=== PATIENT | female | born 1950 | race Hispanic/Latino ===

== ENCOUNTER 2017-05-27 15:04 | Inpatient (IN) | payer MEDICAID ==
[2017-05-27] MEDS ORDERED: Sodium Chloride 0.9% 1,000 ML IV ONE (15:23)
--- NOTE | 2017-05-27 15:49 | C.PDOC ---
Time Seen by Provider: 05/27/17 15:23 Chief Complaint (Nursing): Dizziness/Lightheaded Past Medical History Vital Signs: Last Vital Signs Temp 98.2 F 05/27/17 15:07 Pulse 71 05/27/17 15:07 Resp 20 05/27/17 15:07 BP 172/107 H 05/27/17 15:07 Pulse Ox 98 05/27/17 15:49 - Medical History PMH: Asthma, HIV, Hypercholesterolemia Surgical History: Cholecystectomy - [facility] Procedures MAMMOGRAPHY NEC (03/02/13) PERCUTAN NEEDLE BIOPSY OF BREAST (03/02/13) Family History: States: Unknown Family Hx - Social History Hx Alcohol Use: No Hx Substance Use: No - Immunization History Hx Tetanus Toxoid Vaccination: No Hx Influenza Vaccination: Yes (2014) Hx Pneumococcal Vaccination: No ED Course And Treatment O2 Sat by Pulse Oximetry: 98 Disposition - Disposition Forms: [employer] ([place])
--- NOTE | 2017-05-27 15:56 | C.PDOC ---
History Of Present Illness 66 year old female, whose past medical history includes HTN and HIV, presents to the ED after being sent by Dr. Pennington for evaluation of low heart rate which was noted prior to arrival. Patient was seen at Dr. Pennington's office earlier today, when he noted she was bradycardic and reported feeling slightly weak and lightheaded. Patient was found to have regular heart rate in triage. Patient denies headache, chest pain, shortness of breath. Time Seen by Provider: 05/27/17 15:23 Chief Complaint (Nursing): Dizziness/Lightheaded History Per: Patient History/Exam Limitations: no limitations Onset/Duration Of Symptoms: Hrs Current Symptoms Are (Timing): Better Seizure Or Post-ictal Symptoms: None Additional History Per: Patient Past Medical History Reviewed: Historical Data, Nursing Documentation, Vital Signs Vital Signs: Last Vital Signs Temp 98.2 F 05/27/17 15:07 Pulse 71 05/27/17 15:07 Resp 20 05/27/17 15:07 BP 172/107 H 05/27/17 15:07 Pulse Ox 98 05/27/17 18:00 - Medical History PMH: Asthma, HIV, HTN, Hypercholesterolemia Surgical History: Cholecystectomy - [facility] Procedures MAMMOGRAPHY NEC (03/02/13) PERCUTAN NEEDLE BIOPSY OF BREAST (03/02/13) Family History: States: Unknown Family Hx - Social History Hx Alcohol Use: No Hx Substance Use: No - Immunization History Hx Tetanus Toxoid Vaccination: No Hx Influenza Vaccination: Yes (2014) Hx Pneumococcal Vaccination: No Review Of Systems Constitutional: Positive for: Weakness Cardiovascular: Positive for: Other (low heart rate ) Neurological: Positive for: Other (lightheadedness ) Physical Exam - Physical Exam Appears: Non-toxic, No Acute Distress Skin: Normal Color, Warm, Dry Head: Atraumatic, Normacephalic Eye(s): bilateral: Normal Inspection Oral Mucosa: Moist Neck: Supple Chest: Symmetrical, No Deformity, No Tenderness Cardiovascular: Rhythm Regular, No Murmur Respiratory: Normal Breath Sounds, No Rales, No Rhonchi, No Wheezing Extremity: Normal ROM, Capillary Refill (less than 2 seconds ) Neurological/Psych: Oriented x3, Normal Speech, Normal Cognition Gait: Steady ED Course And Treatment - Laboratory Results Result Diagrams: 05/27/17 15:48 10/04/17 15:48 Lab Interpretation: No Acute Changes ECG: Interpreted By Me ECG Rhythm: Sinus Rhythm, R BBB ECG Interpretation: No Acute Changes Rate From EC O2 Sat by Pulse Oximetry: 98 (on RA) Pulse Ox Interpretation: Normal - Radiology CXR: Interpreted by Me CXR Interpretation: Yes: No Acute Disease Progress Note: EKG, CXR, and labs ordered and reviewed. Patient received IV Fluids. Reassessment Condition: Improved - Physician Consult Information Physician Contacted: Layton ePnnington Outcome Of Conversation: admit Disposition Discussed With Dr.: Layton Pennington Doctor Will See Patient In The: Hospital - Disposition Disposition: HOSPITALIZED Disposition Time: 17:00 Condition: STABLE - POA Present On Arrival: None - Clinical Impression Clinical Impression: Dizziness, Near syncope, Bradycardia, Bundle branch block, right - PA / ANGLESMITH HELPER / Resident Statement MD/DO has reviewed & agrees with the documentation as recorded. - Scribe Statement The provider has reviewed the documentation as recorded by the Scribe (Ebonie Oliver) All medical record entries made by the Scribe were at my direction and personally dictated by me. I have reviewed the chart and agree that the record accurately reflects my personal performance of the history, physical exam, medical decision making, and the department course for this patient. I have also personally directed, reviewed, and agree with the discharge instructions and disposition. Decision To Admit - Pt Status Changed To: Hospital Disposition Of: Inpatient - Admit Certification Admit to Inpatient:: After my assessment, the patient will require hospitalization for at least two midnights. This is because of the severity of symptoms shown, intensity of services needed, and/or the medical risk in this patient being treated as an outpatient. - InPatient: Physician Admission Certification: I certify that this patient requires 2 or more midnights of care for the following reason:: New BBB. Bradycardia - . Bed Request Type: Telemetry Admitting Physician: Layton Pennington Patient Diagnosis: Dizziness, Near syncope, Bradycardia, Bundle branch block, right
[2017-05-27 16:02] LABS: BASO # 0.1 K/uL (0.0-0.2); BASO % 0.8 % (0.0-2.0); CHLORIDE 103 mmol/L (98-107); EOS # 0.3 K/uL (0.0-0.7); EOS % 5.2 % (0.0-4.0); HEMATOCRIT 42.2 % (34.0-47.0); LYMPH # 2.1 K/uL (1.0-4.3); LYMPH % 32.6 % (20.0-40.0); MEAN CELL VOLUME 100.7 fL (81.0-99.0); MEAN CORPUSCULAR HEMOGLOBIN 34.8 pg (27.0-31.0); MEAN CORPUSCULAR HGB CONC 34.5 g/dL (33.0-37.0); MEAN PLATELET VOLUME 8.7 fL (7.2-11.7); MONO # 0.4 K/uL (0.0-0.8); MONO % 6.7 % (0.0-10.0); NRBC % 0.1 % (0.0-2.0); RBC URINE < 1 /hpf (0-3); RED CELL DISTRIBUTION WIDTH 13.1 % (11.5-14.5); URINE BACTERIA RARE (<OCC); URINE BILIRUBIN NEGATIVE (NEGATIVE); URINE BLOOD NEGATIVE (NEGATIVE); URINE COLOR Straw (YELLOW); URINE GLUCOSE (UA) NORMAL (Normal); URINE KETONE NEGATIVE (NEGATIVE); URINE LEUKOCYTE ESTERASE 1+ Leu/uL (Negative); URINE PROTEIN NEGATIVE (NEGATIVE); URINE UROBILINOGEN NORMAL mg/dL (0.2-1.0); WBC URINE 12 /hpf (0-5); WHITE BLOOD COUNT 6.3 K/uL (4.8-10.8)
[2017-05-27 16:03] LABS: POTASSIUM 3.3 mmol/L (3.6-5.2); SODIUM 137 mmol/L (132-148)
[2017-05-27 16:05] LABS: ALB/GLOB RATIO 1.1 (1.0-2.1); AST/SGOT 28 U/L (14-36); BILIRUBIN,TOTAL 1.2 mg/dL (0.2-1.3); CARBON DIOXIDE 20 mmol/L (22-30); GFR AFRICAN-AMERICAN > 60; TOTAL PROTEIN 8.1 g/dL (6.3-8.3)
[2017-05-27 16:06] LABS: ALKALINE PHOSPHATASE 70 U/L (38-126); ALT/SGPT 29 U/L (9-52); BLOOD UREA NITROGEN 13 mg/dL (7-17); CALCIUM 9.4 mg/dl (8.6-10.4); GLUCOSE,RANDOM 121 mg/dL (65-105)
--- NOTE | 2017-05-27 16:13 | RAD ---
HISTORY: SOB COMPARISON: Chest radiographs 01/13/2016. TECHNIQUE: Chest PA and lateral FINDINGS: LUNGS: No active pulmonary disease. PLEURA: No significant pleural effusion identified. No pneumothorax apparent. CARDIOVASCULAR: Normal. OSSEOUS STRUCTURES: No significant abnormalities. VISUALIZED UPPER ABDOMEN: Normal. OTHER FINDINGS: Surgical clips are again seen at the right axilla region and inferior right chest. IMPRESSION: No interval acute cardiopulmonary disease appreciated.
[2017-05-27] MEDS ORDERED: Sodium Chloride 0.9% 1,000 ML ONE (17:02)
[2017-05-27] MEDS ORDERED: Albuterol HFA 90 mcg/actuation (8 g) IH PRN ×2 (19:02→20:45)
[2017-05-27] MEDS ORDERED: Home Med 1 UNIT (Atorvastatin [Lipitor] 10 MG) PO SCH (19:15)
[2017-05-27] MEDS ORDERED: Ergocalciferol 50,000 Intl Units Cap PO SCH (19:15)
[2017-05-28] MEDS ORDERED: Potassium Chloride 20 mEq ER Tab PO ONE (02:24)
--- NOTE | 2017-05-28 03:25 | CON ---
DATE: REASON FOR CONSULTATION: Abnormal EKG. HISTORY OF PRESENT ILLNESS: The patient is a 66-year-old [place] female who has a history of hypertension, HIV positive, and history of breast cancer in 2012 for which she underwent right breast lumpectomy, possible chemotherapy and radiation. The patient was referred by Dr. Pennington from his office because of bradycardia and lightheadedness. The patient denies any dizziness at this time. The patient's EKG revealed new onset right bundle branch block as well as sinus bradycardia. The patient's earlier EKG in 07/2015 revealed only left sinus bradycardia with left anterior fascicular block. The patient denies any syncope. The patient reported that at one point she had palpitations, but does not recall the workup that was done or any medications were given for that. SOCIAL HISTORY: Nonsmoker. MEDICATIONS: The patient is on antiviral therapy. She is also receiving intravenous potassium chloride replacement and is on folic acid 1 mg daily. REVIEW OF SYSTEMS: No nausea or vomiting. No fever or chills. PHYSICAL EXAMINATION GENERAL: The patient is a middle aged female who does not appear to be in any distress. VITAL SIGNS: Blood pressure 150/87, heart rate 55, temperature 97.8, respirations 18. HEENT: Normocephalic. CHEST: Clear. HEART: S1 and S2, regular. ABDOMEN: Soft. EXTREMITIES: No edema. LABORATORY DATA: SMA-7; sodium 137, potassium 3.3, chloride 103, CO2 of 20, glucose 121, BUN 15, and creatinine 1.1. One set of troponin is negative. Hemoglobin, hematocrit, white count and platelet count are within normal limits. EKG revealed sinus bradycardia, bifascicular block, right bundle branch block with left anterior fascicular block. Echocardiography earlier performed in 07/2015, reviewed ejection fraction at the range of 50 to 55%, mild to moderate mitral insufficiency. ASSESSMENT: 1. New onset right bundle branch block. 2. Sinus bradycardia and dizziness. 3. Human immunodeficiency virus positive. RECOMMENDATIONS: Continue current antiviral therapy as well as potassium replacement and folic acid. Obtain TSH level. Schedule patient for an echocardiogram. Ricci Amaro MD [facility] # [id number]
[2017-05-28 06:29] LABS: HEMATOCRIT 40.8 % (34.0-47.0); MEAN CELL VOLUME 102.1 fL (81.0-99.0); MEAN CORPUSCULAR HEMOGLOBIN 35.4 pg (27.0-31.0); MEAN CORPUSCULAR HGB CONC 34.7 g/dL (33.0-37.0); MEAN PLATELET VOLUME 8.5 fL (7.2-11.7); RED CELL DISTRIBUTION WIDTH 13.1 % (11.5-14.5); WHITE BLOOD COUNT 6.1 K/uL (4.8-10.8)
[2017-05-28 07:52] LABS: CHLORIDE 106 mmol/L (98-107); POTASSIUM 3.7 mmol/L (3.6-5.2); SODIUM 141 mmol/L (132-148)
[2017-05-28 07:54] LABS: AST/SGOT 27 U/L (14-36); BILIRUBIN,TOTAL 1.4 mg/dL (0.2-1.3); CARBON DIOXIDE 23 mmol/L (22-30); CHOLESTEROL 197 mg/dL (0-199); GFR AFRICAN-AMERICAN > 60; TOTAL PROTEIN 7.7 g/dL (6.3-8.3)
[2017-05-28 07:55] LABS: ALKALINE PHOSPHATASE 66 U/L (38-126); ALT/SGPT 29 U/L (9-52); BLOOD UREA NITROGEN 13 mg/dL (7-17); CALCIUM 9.3 mg/dl (8.6-10.4); GLUCOSE,RANDOM 84 mg/dL (65-105)
[2017-05-28 08:21] LABS: THYROID STIMULATING HORMONE 1.27 mIU/L (0.46-4.68)
[2017-05-28] MEDS ORDERED: Abacavir/Lamivudine 600 mg-300 mg Tab PO SCH (10:00)
[2017-05-28] MEDS: Abacavir/Lamivudine 600 mg-300 mg Tab PO SCH (10:08)
--- NOTE | 2017-05-28 14:37 | PN ---
DATE: SUBJECTIVE: The patient denies any dizziness. PHYSICAL EXAMINATION: VITAL SIGNS: Blood pressure 143/79, heart rate initially today was 47 and at this time is 76 beats per minute, temperature 98.4 and respirations 18. HEENT: Normocephalic. HEART: S1 and S2 regular. CHEST: Clear. EXTREMITIES: No edema. LABORATORY DATA: TSH level is within normal limits. Today's SMA-7 is within normal limits. Hemoglobin, hematocrit, white count and platelet count are within normal limits. ASSESSMENT: 1. Sinus bradycardia and new-onset right bundle-branch block. 2. History of dizziness. 3. Human immunodeficiency virus positive. 4. History of breast carcinoma, status post right breast lumpectomy followed by chemotherapy and radiation therapy in year 2014. RECOMMENDATIONS: Continue current subcutaneous heparin 5000 units twice a day. Continue antiviral therapy. I will review the echocardiogram study performed today. Ricci Amaro MD
--- NOTE | 2017-05-28 15:31 | CARD ---
APPROVED REPORT EXAM: Two-dimensional and M-mode echocardiogram with Doppler and color Doppler. Other Information Quality : GoodRhythm : NSR INDICATION Syncope Palpitations NEW BBB, HIV, CA OF BREAST CANCER RISK FACTORS Hypertension Hyperlipidemia 2D DIMENSIONS IVSd0.9 (0.7-1.1cm)LVDd3.8 (3.9-5.9cm) PWd0.9 (0.7-1.1cm)LVDs2.4 (2.5-4.0cm) FS (%) 36.4 %LVEF (%)66.9 (>50%) M-Mode DIMENSIONS RVDd1.97 (2.1-3.2cm)Left Atrium (MM)3.27 (2.5-4.0cm) IVSd0.94 (0.7-1.1cm)Aortic Root2.76 (2.2-3.7cm) LVDd4.56 (4.0-5.6cm)Aortic Cusp Exc.1.77 (1.5-2.0cm) PWd0.94 (0.7-1.1cm)FS (%) 49 % LVDs2.34 (2.0-3.8cm)LVEF (%)80 (>50%) Mitral Valve MV E Dxikasgn57.2cm/sMV A Qyluhxgp45.3cm/sE/A ratio0.9 TDI E/Lateral E'0.0E/Medial E'0.0 Tricuspid Valve TR Peak Iiujlimq400ys/sTR Peak Gr.[id number] LEFT VENTRICLE The left ventricle is normal size. There is normal left ventricular wall thickness. The left ventricular function is normal. The left ventricular ejection fraction is within the normal range. There is normal LV segmental wall motion. Transmitral Doppler flow pattern is abnormal. RIGHT VENTRICLE The right ventricle is normal size. ATRIA The left atrium size is normal. The right atrium size is normal. AORTIC VALVE The aortic valve is normal in structure. MITRAL VALVE Mitral regurgitation is trace. TRICUSPID VALVE There is mild tricuspid regurgitation. <Conclusion> Normal LV systolic function. Diastolic dysfunction. Normal chamber size. Trace MR. Mild TR.
--- NOTE | 2017-05-28 15:33 | CARD ---
APPROVED REPORT EKG Measurement Heart [id number] [id number] <Conclusion> Normal sinus rhythm Right bundle branch block Left anterior fascicular block Bifascicular block Abnormal ECG
[2017-05-29 07:18] LABS: CHLORIDE 105 mmol/L (98-107)
[2017-05-29 07:19] LABS: SODIUM 138 mmol/L (132-148)
[2017-05-29 07:21] LABS: AST/SGOT 27 U/L (14-36); BILIRUBIN,TOTAL 1.4 mg/dL (0.2-1.3); CARBON DIOXIDE 22 mmol/L (22-30); GFR AFRICAN-AMERICAN > 60
[2017-05-29 07:22] LABS: ALKALINE PHOSPHATASE 62 U/L (38-126); ALT/SGPT 26 U/L (9-52); BLOOD UREA NITROGEN 18 mg/dL (7-17); CALCIUM 9.4 mg/dl (8.6-10.4); GLUCOSE,RANDOM 84 mg/dL (65-105)
[2017-05-29 07:42] LABS: THYROID STIMULATING HORMONE 1.04 mIU/L (0.46-4.68)
[2017-05-29 07:58] VITALS: BP 136/77; PULSE 52; RESP 18; TEMP 98.3; O2SAT 96
--- NOTE | 2017-05-29 09:20 | HP ---
HISTORY OF PRESENT ILLNESS: This patient is a 66-year-old female with history of HIV and hypertension. The patient came to my office complaining of dizziness and generalized weakness for the past 4 or 5 days. The patient was found to have a heart rate in the range of 40 to 46 and the patient also was found to have orthostatic hypotension and blood pressure was 110/60, and dropped at 89/55 in sitting position, so the patient was advised to go to the emergency room for admission. Also on admission, the patient was complaining of feeling that she was going to pass out for the past few days on and off. ALLERGIES: THE PATIENT DENIES ANY ALLERGIES. PAST MEDICAL HISTORY: History of HIV positive, hypertension, asthma, and hyperlipidemia. SURGICAL HISTORY: The patient has history of cholecystectomy. SOCIAL HISTORY: The patient has children. No history of smoking or alcohol abuse. FAMILY HISTORY: No inherited disease. REVIEW OF SYSTEMS: RESPIRATORY SYSTEM: The patient denies any shortness of breath. CARDIOVASCULAR: The patient has been having some palpitations at times and denies any chest pain. GASTROINTESTINAL: No nausea or vomiting, but has been having some anorexia. GENITOURINARY: Denies any dysuria. NEUROLOGIC: The patient is weak and also has dizziness on and off. PHYSICAL EXAMINATION: GENERAL: The patient is alert and awake, and oriented x3, and pleasant. VITAL SIGNS: Blood pressure was 143/76, but the blood pressure was 110/70 on admission and pulse was 45-48, respirations 18. HEENT: Head is normocephalic. The mouth was moist and there is no thrush. NECK: Supple. No JVD. LUNGS: Some fine wheezes. HEART: Regular rate and rhythm, but there is bradycardia. ABDOMEN: Soft, nontender. No palpable mass. EXTREMITIES: There is no edema. LABORATORY DATA: The patient has tests done on admission. WBC 6.3, hemoglobin 14.6, hematocrit 42.2, MCV 147, MCH 34.8 and platelets 299,000. Chemistry; sodium 137, potassium 3.3, chloride 103, bicarbonate 20, BUN 13, creatinine 1.1, and glucose 121, calcium 9.4, AST 28, ALT 29, alkaline phosphatase 70, troponin is 0.012. The patient has also other test today; triglyceride is 210, cholesterol was 197, LDL 83, and HDL 51. The patient admitted with diagnosis of bradyarrhythmia, hypertension, dizziness, near syncope, and also HIV positive. The patient had cardiology consult with Dr. Amaro. Also, the patient has diabetes and hypokalemia, The patient will have a potassium replacement and echocardiogram and 24-hour Holter monitor is ordered. We are going to continue to see this patient in the hospital. Layton Pennington MD
[2017-05-29] MEDS: Abacavir/Lamivudine 600 mg-300 mg Tab PO SCH (09:49)
--- NOTE | 2017-05-29 14:49 | PN ---
SUBJECTIVE: The patient denies any dizziness. There is no documented significant bradycardia, the heart rates documented today are 49 and 52 beats per minute. PHYSICAL EXAMINATION: VITAL SIGNS: Blood pressure 136/77, heart rate 52, temperature 98.3, respirations 18. HEENT: [place] conjunctivae. CHEST: Clear. HEART: S1 and S2 regular. EXTREMITIES: No edema. LABORATORIES: Today's SMA-7 is within normal limit except for BUN of 18. Total bilirubin is borderline elevated at 1.4. Official echo report revealed normal left ventricular systolic function, diastolic dysfunction, trace MR and mild tricuspid insufficiency. ASSESSMENT: 1. Sinus bradycardia which so far is asymptomatic. 2. Human immunodeficiency virus positive. 3. Anemia. RECOMMENDATIONS: Continue current antiviral therapy. Continue Norvasc 2.5 mg once a day. The patient can be discharged and undergo ambulatory 24 hours Holter monitor as an outpatient. Ricci Amaro MD
--- NOTE | 2017-05-29 20:43 | PN ---
Today, the patient is alert and awake, denies any shortness of breath. No chest pain. The patient is having no dizziness today. PHYSICAL EXAMINATION VITAL SIGNS: Blood pressure of 136/77, pulse is 80, respiration is . HEENT: Mouth is moist. No thrush. NECK: Supple. No JVD. LUNGS: Clear. HEART: Regular rate and rhythm, bradycardic. ABDOMEN: Soft and nontender. No palpable mass. EXTREMITIES: There is no edema. LABORATORY DATA: The patient had the blood test done. It showed a WBC of 6.1, hemoglobin 14.2, hematocrit 40.8, and platelets 288. Chemistry: Sodium of 138, potassium 4, chloride 105, bicarb is 22, BUN 18, creatinine is 1.1. AST is 27, ALT 26, and total bilirubin 1.4. Also, the patient had an echocardiogram done. The echocardiogram that was done today showed that the left ventricle is normal size and there is a normal left LV systolic function. There is diastolic dysfunction and trace mitral valve regurgitation and mild tricuspid regurgitation. PLAN: So the plan is that the patient will have 24-hour Holter monitor, and we will consider discharging the patient today. By the way, the ejection fraction was 80%. The case was reviewed and discussed with the Luz Maria Bartlett, the nurse practitioner. Layton Pennington MD
--- NOTE | 2017-05-30 03:20 | DS ---
SUMMARY: The patient is a 66-year-old female with history of HIV and hypertension. The patient came to my office. She was complaining of dizziness and shortness of breath on exertion. The patient was found to be bradycardic at a rate of 40 to 45 beats per minute and also the patient was found to have orthostatic hypotension. So, the patient was advised to go to the [facility] for evaluation, which the patient . The patient has, as I mentioned, past medical history of HIV, hypertension, and arthritis. The patient had consult with Dr. Amaro, gas roller operator and also the patient had some blood work done that has revealed hypokalemia. Also, the patient had an echocardiogram that has revealed an ejection fraction of 80%, but also diastolic dysfunction and normal LV systolic function, trace mitral regurgitation, and mild tricuspid regurgitation. So, a 24-hour Holter monitor was ordered, but the patient will consider this 24-hour Holter as an outpatient. The patient will have the Holter monitor upon discharge and will bring the machine tomorrow, and we are going to follow this patient within one week. In the meantime, the patient will have 2 mg of amlodipine once a day. Layton Pennington MD
[2017-05-31] MEDS ORDERED: Pneumococcal 23-Valent Vaccine IM ONE (10:00)
== END 2017-05-29 16:00 | disposition home or self-care (01) | DRG 138 ==
LOC: C.ER 15:04 → C.9E 16:40 → C.6T 17:42
PROVIDERS: ADMIT Specialist; ATTEND Specialist
DX: I49.8 Other specified cardiac arrhythmias (principal); E87.6 Hypokalemia; I10 Essential (primary) hypertension; I07.1 Rheumatic tricuspid insufficiency; R55 Syncope and collapse; E11.9 Type 2 diabetes mellitus without complications; D64.9 Anemia, unspecified; R00.1 Bradycardia, unspecified; I45.10 Unspecified right bundle-branch block; J45.909 Unspecified asthma, uncomplicated; Z21 Asymptomatic human immunodeficiency virus [HIV] infection status; E78.00 Pure hypercholesterolemia, unspecified; Z85.3 Personal history of malignant neoplasm of breast; I95.1 Orthostatic hypotension; I34.0 Nonrheumatic mitral (valve) insufficiency

== ENCOUNTER 2018-09-17 03:05 | Inpatient (IN) | payer MEDICAID, MEDICARE ==
--- NOTE | 2018-09-17 03:34 | C.PDOC ---
History Of Present Illness patient woke up with fever, chills and just not feeling well. No cough or urinary symptoms. has not received the flu shot this year. Speaking in complete sentences. Time Seen by Provider: 09/17/18 03:33 Chief Complaint (Nursing): Flu-like Symptoms History Per: Patient History/Exam Limitations: no limitations Onset/Duration Of Symptoms: Hrs Current Symptoms Are (Timing): Still Present Severity: Moderate Pain Scale Rating Of: 4 Reports Recently: Treated By A Physician Recent travel outside of the [place]: No Additional History Per: Family Past Medical History Reviewed: Historical Data, Nursing Documentation, Vital Signs Vital Signs: Last Vital Signs Temp 99.5 F 09/17/18 03:16 Pulse 152 H 09/17/18 03:16 Resp 18 09/17/18 03:16 BP 139/89 09/17/18 03:16 Pulse Ox 96 09/17/18 03:16 - Medical History PMH: Asthma, HIV, HTN, Hypercholesterolemia Denies: Chronic Kidney Disease Surgical History: Cholecystectomy - [facility] Procedures MAMMOGRAPHY NEC (03/02/13) PERCUTAN NEEDLE BIOPSY OF BREAST (03/02/13) Family History: States: No Known Family Hx - Social History Hx Alcohol Use: No Hx Substance Use: No - Immunization History Hx Tetanus Toxoid Vaccination: No Hx Influenza Vaccination: Yes (2014) Hx Pneumococcal Vaccination: No Review Of Systems Constitutional: Positive for: Fever, Chills ENT: Negative for: Throat Pain Cardiovascular: Negative for: Chest Pain Respiratory: Negative for: Shortness of Breath Gastrointestinal: Negative for: Nausea, Vomiting, Abdominal Pain Genitourinary: Negative for: Dysuria Musculoskeletal: Positive for: Back Pain Skin: Negative for: Rash Neurological: Negative for: Weakness Psych: Negative for: Anxiety Physical Exam - Physical Exam Appears: Non-toxic, No Acute Distress Skin: Warm, Dry Head: Normacephalic Eye(s): bilateral: Normal Inspection Oral Mucosa: Moist Throat: No Erythema Neck: Supple Chest: Symmetrical Cardiovascular: Rhythm Regular Respiratory: No Rales, Rhonchi, No Wheezing Gastrointestinal/Abdominal: Soft, No Tenderness, No Distention, No Guarding, No Rebound Back: No CVA Tenderness Extremity: Normal ROM Extremity: Bilateral: Atraumatic Neurological/Psych: Oriented x3 Gait: Steady ED Course And Treatment - Laboratory Results Result Diagrams: 09/17/18 03:44 09/17/18 03:44 O2 Sat by Pulse Oximetry: 96 Pulse Ox Interpretation: Normal - Radiology CXR: Interpreted by Me, Viewed By Me CXR Interpretation: No: Infiltrates, Fracture, Pnemothorax Reevaluation Time: 06:12 Reassessment Condition: Improved Disposition Discussed With DrIndra: Layton Pennington Comment: accepted the pt on his service and took over the care at 6:18AM Doctor Will See Patient In The: Hospital Counseled Patient/Family Regarding: Studies Performed, Diagnosis, Need For Followup, Rx Given - Disposition Disposition: HOSPITALIZED Disposition Time: 03:34 Condition: FAIR Forms: [employer] ([place]) - POA Present On Arrival: Poor Glycemic Control - Clinical Impression Clinical Impression: Influenza-like illness, Fever, Pyelonephritis Decision To Admit - Pt Status Changed To: Hospital Disposition Of: Inpatient - Admit Certification Admit to Inpatient:: After my assessment, the patient will require hospitalization for at least two midnights. This is because of the severity of symptoms shown, intensity of services needed, and/or the medical risk in this patient being treated as an outpatient. - InPatient: Physician Admission Certification: I certify that this patient requires 2 or more midnights of care for the following reason:: After my assessment, the patient will require hospitalization for at least two midnights. This is because of the severity of symptoms shown, intensity of services needed, and/or the medical risk in this patient being treated as an outpatient. - . Bed Request Type: Regular Admitting Physician: Layton Pennington Patient Diagnosis: Influenza-like illness, Fever, Pyelonephritis
[2018-09-17] MEDS ORDERED: Sodium Chloride 0.9% 1,000 ML IV ONE (03:39)
[2018-09-17 03:47] LABS: BASO # 0.1 K/uL (0.0-0.2); BASO % 0.3 % (0.0-2.0); EOS # 0.1 K/uL (0.0-0.7); EOS % 0.8 % (0.0-4.0); HEMOGLOBIN 14.4 g/dL (11.0-16.0); LYMPH # 0.8 K/uL (1.0-4.3); LYMPH % 4.8 % (20.0-40.0); MEAN CELL VOLUME 99.4 fL (81.0-99.0); MEAN CORPUSCULAR HEMOGLOBIN 33.7 pg (27.0-31.0); MEAN CORPUSCULAR HGB CONC 33.9 g/dL (33.0-37.0); MEAN PLATELET VOLUME 7.3 fL (7.2-11.7); MONO # 0.5 K/uL (0.0-0.8); MONO % 2.8 % (0.0-10.0); NEUT # 14.9 K/uL (1.8-7.0); NEUT % 91.3 % (50.0-75.0); NRBC % 0.1 % (0.0-2.0); PLATELET COUNT 455 K/uL (130-400); RBC 4.27 Mil/uL (3.80-5.20); RED CELL DISTRIBUTION WIDTH 12.9 % (11.5-14.5); WHITE BLOOD COUNT 16.4 K/uL (4.8-10.8)
[2018-09-17 03:50] LABS: VENOUS BLOOD GAS BASE EXCESS -1.1 mmol/L (0.0-2.0); VENOUS BLOOD GAS PCO2 34 mmHg (40-60); VENOUS BLOOD GAS PO2 56 mm/Hg (30-55); VENOUS BLOOD PH 7.43 (7.32-7.43)
[2018-09-17] MEDS ORDERED: Sodium Chloride 0.9% 2,000 ML IV ONE (03:55)
[2018-09-17 04:09] LABS: ALT/SGPT 9 U/L (9-52); AST/SGOT 30 U/L (14-36); BLOOD UREA NITROGEN 15 mg/dL (7-17); CALCIUM 8.9 mg/dl (8.6-10.4); GFR NON-AFRICAN AMERICAN 55
[2018-09-17] MEDS ORDERED: Potassium Chloride 10 mEq ER Tab PO STA (04:23)
[2018-09-17 04:43] LABS: EOSINOPHIL 2 % (0-4); LYMPHOCYTE 4 % (20-40); MONOCYTE 3 % (0-10); NEUTROPHIL 91 % (50-75); PLATELET ESTIMATE NORMAL (NORMAL); TOTAL CELLS COUNTED 100
[2018-09-17] MEDS ORDERED: Sodium Chloride 0.9% 1,000 ML ONE (04:43)
[2018-09-17] MEDS ORDERED: Potassium Chloride 10 mEq ER Tab PO ONE (04:43)
[2018-09-17 04:49] LABS: URINE BACTERIA MANY (<OCC); URINE BILIRUBIN NEGATIVE (NEGATIVE); URINE BLOOD NEGATIVE (NEGATIVE); URINE CLARITY Clear (Clear); URINE COLOR Colorless (YELLOW); URINE GLUCOSE (UA) NORMAL (Normal); URINE LEUKOCYTE ESTERASE 2+ Leu/uL (Negative); URINE PROTEIN NEGATIVE (NEGATIVE); URINE UROBILINOGEN NORMAL mg/dL (0.2-1.0)
[2018-09-17] MEDS ORDERED: cefTRIAXone IV 1 gm in Dextros 50 ML IVPB ONE (05:15)
[2018-09-17] MEDS ORDERED: Albuterol HFA 90 mcg/actuation (8 g) IH PRN ×2 (06:24→13:45)
[2018-09-17] MEDS ORDERED: Home Med 1 UNIT (Atorvastatin [Lipitor] 10 MG) PO SCH (06:30)
[2018-09-17] MEDS ORDERED: Ergocalciferol 50,000 Intl Units Cap PO SCH (06:30)
--- NOTE | 2018-09-17 07:39 | RAD ---
Date of service: 09/17/2018 HISTORY: fever COMPARISON: Chest radiographs 05/27/2017. FINDINGS: LUNGS: Diminished inspiratory volume. No definitive infiltrate bilaterally. Surgical clips at right axilla/right breast reiterated. PLEURA: No significant pleural effusion identified, no pneumothorax apparent. CARDIOVASCULAR: Calcific atherosclerotic changes are seen related to the thoracic aorta. Normal cardiac size. No pulmonary vascular congestion. OSSEOUS STRUCTURES: No significant abnormalities. VISUALIZED UPPER ABDOMEN: Normal. OTHER FINDINGS: None. IMPRESSION: Limited inspiratory volume. No infiltrate or pleural effusion bilaterally. Surgical clips reiterated at right axilla/right breast
[2018-09-17] MEDS ORDERED: Abacavir/Lamivudine 600 mg-300 mg Tab PO ONE (10:00)
[2018-09-17] MEDS ORDERED: Abacavir/Lamivudine 600 mg-300 mg Tab PO SCH (10:00)
[2018-09-17] MEDS ORDERED: Ciprofloxacin 400mg/200ml D5W 400 MG/200 ML BAG IVPB ONE (11:15)
[2018-09-17] MEDS: Ciprofloxacin 400mg/200ml D5W 400 MG/200 ML BAG IVPB SCH ×2 (11:19→19:08)
--- NOTE | 2018-09-17 19:47 | CP.PCM.CON ---
History of Present Illness - History of Present Illness History of Present Illness: 68 yo female admitted with fever chills and weakness found to have pyelonephritids ID consulted for this PMH HTN HIV Breast CA SH non smoker Meds Triumeq FH N/C NKA Review of Systems - Review of Systems All systems: reviewed and no additional remarkable complaints except - Constitutional Constitutional: As Per HPI - EENT Eyes: absent: As Per HPI, Blind Spots, Blurred Vision, Change in Vision, Decreased Night Vision, Diplopia, Discharge, Dry Eye, Exophthalmos, Floaters, Irritation, Itchy Eyes, Loss of Peripheral Vision, Pain, Photophobia, Requires Corrective Lenses, Sees Flashes, Spots in Vision, Tunnel Vision, Other Visual Disturbances, Loss of Vision, Other Ears: absent: As Per HPI, Decreased Hearing, Ear Discharge, Ear Pain, Tinnitus, Abnormal Hearing, Disequilibrium, Dizziness, Other Nose/Mouth/Throat: absent: As Per HPI, Epistaxis, Nasal Congestion, Nasal Discharge, Nasal Obstruction, Nasal Trauma, Nose Pain, Post Nasal Drip, Sinus Pain, Sinus Pressure, Bleeding Gums, Change in Voice, Dental Pain, Dry Mouth, Dysphagia, Halitosis, Hoarsness, Lip Swelling, Mouth Lesions, Mouth Pain, Odynophagia, Sore Throat, Throat Swelling, Tongue Swelling, Facial Pain, Neck Pain, Neck Mass, Other - Breasts Breasts: absent: As Per HPI, Change in Shape, Mass, Pain, Nipple Discharge, Nipple Inversion, Skin Changes, Swelling, Other - Cardiovascular Cardiovascular: absent: As Per HPI, Acrocyanosis, Chest Pain, Chest Pain at Rest, Chest Pain with Activity, Claudication, Diaphoresis, Dyspnea, Dyspnea on Exertion, Edema, Irregular Heart Rhythm, Pain Radiating to Arm/Neck/Jaw, Leg Edema, Leg Ulcers, Lightheadedness, Orthopnea, Palpitations, Paroxysmal Nocturnal Dyspnea, Pedal Edema, Radiating Pain, Rapid Heart Rate, Slow Heart Rate, Syncope, Other - Respiratory Respiratory: absent: As Per HPI, Cough, Dyspnea, Hemoptysis, Dyspnea on Exertion, Wheezing, Snoring, Stridor, Pain on Inspiration, Chest Congestion, Excessive Mucous Production, Change in Mucous Color, Pain with Coughing, Other - Gastrointestinal Gastrointestinal: absent: As Per HPI, Abdominal Pain, Belching, Bloating, Change in Bowel Habits, Change in Stool Character, Coffee Ground Emesis, Constipation, Cramping, Diarrhea, Dyspepsia, Dysphagia, Early Satiety, Excessive Flatus, Fecal Incontinence, Heartburn, Hematemesis, Hematochezia, Loose Stools, Melena, Nausea, Odynophagia, Temesmus, Vomiting, Other - Genitourinary Genitourinary: As Per HPI - Reproductive: Female Reproductive:Female: As Per HPI - Menstruation Menstruation: absent: As Per HPI, Amenorrhea, Amenorrhea/ Control, Currently Menstual, Cycle <21 Days, Cycle >35 Days, Cycle Variable, Menses 1-7 Days, Menses >/= 8 Days, Menses Variable, Cycle > 4 Weeks Between, No Menses for 6 Months, Heavy Menses, Light Menses, Normal Menses, Spotting Between Cycles, S/P Hysterectomy, Menopausal, Post Menopausal, Premenarche, Abnormal Vaginal Bleeding, Dysmenorrhea, Other - Musculoskeletal Musculoskeletal: As Per HPI - Integumentary Integumentary: absent: As Per HPI, Acne, Alopecia, Bleeding Lesions, Change in Hair, Change in Nails, Change in Pigmentation, Changing Lesions, Dry Skin, Erythema, Furuncle, Hirsutism, Lesions, New Lesions, Non-Healing Lesions, Photosensitivity, Pruritus, Rash, Skin Pain, Skin Ulcer, Sores, Striae, Swelling, Unusual Bruising, Wounds, Jaundice, Other - Neurological Neurological: absent: As Per HPI, Abnormal Gait, Abnormal Hearing, Abnormal Movements, Abnormal Speech, Behavioral Changes, Burning Sensations, Confusion, Convulsions, Disequilibrium, Dizziness, Numbness, Focal Weakness, Frequent Falls, Headaches, Lack of Coordination, Loss of Vision, Memory Loss, Parest hesias, Radicular Pain, Restless Legs, Sensory Deficit, Syncope, Tingling, Tremor, Vertigo, Weakness, Other Visual Disturbances, Other - Psychiatric Psychiatric: absent: As Per HPI, Abnormal Sleep Pattern, Anhedonia, Anxiety, Auditory Hallucinations, Behavioral Changes, Change in Appetite, Change in Libido, Confusion, Depression, Difficulty Concentrating, Hallucinations, Homicidal Ideation, Hopelessness, Irritability, Memory Loss, Mood Swings, Panic Attacks, Paranoia, Suicidal Ideation, Visual Hallucinations, Tactile Hallucinations, Other - Endocrine Endocrine: absent: As Per HPI, Change in Body Appearance, Change in Libido, Cold Intolorance, Deepening of Voice, Excessive Sweating, Fatigue, Flushing, Heat Intolorance, Increase in Ring/Shoe/Hat Size, Palpitations, Polydipsia, Polyphagia, Polyuria, Other - Hematologic/Lymphatic Hematologic: absent: As Per HPI, Easy Bleeding, Easy Bruising, Lymphadenopathy, Other Past Patient History - Past Medical History & Family History Past Medical History?: Yes - Past Social History Smoking Status: Never Smoked - CARDIAC Hx Hypercholesterolemia: Yes Hx Hypertension: Yes - PULMONARY Hx Asthma: Yes - NEUROLOGICAL Hx Neurological Disorder: No - HEENT Hx HEENT Problems: No - RENAL Hx Chronic Kidney Disease: No - ENDOCRINE/METABOLIC Hx Endocrine Disorders: No - HEMATOLOGICAL/ONCOLOGICAL Hx Human Immunodeficiency Virus (HIV): Yes - INTEGUMENTARY Hx Dermatological Problems: No - MUSCULOSKELETAL/RHEUMATOLOGICAL Hx Musculoskeletal Disorders: No Hx Falls: Yes - GASTROINTESTINAL Hx Gastrointestinal Disorders: No - GENITOURINARY/GYNECOLOGICAL Hx Genitourinary Disorders: No - PSYCHIATRIC Hx Substance Use: No - SURGICAL HISTORY Hx Cholecystectomy: Yes - ANESTHESIA Hx Anesthesia: Yes Hx Anesthesia Reactions: No Hx Malignant Hyperthermia: No Meds Allergies/Adverse Reactions: Allergies Allergy/AdvReac Type Severity Reaction Status Date / Time No Known Allergies Allergy Verified 09/17/18 03:15 - Medications Medications: Current Medications Abacavir/Lamivudine (Epzicom) 600 tab PO DAILY [facility]; Protocol Last Admin: 09/17/18 11:19 Dose: 600 tab Albuterol (Ventolin Hfa 90 Mcg/Actuation (8 G)) 1 puff IH RQ6 PRN PRN Reason: Shortness of Breath Amlodipine Besylate (Norvasc) 2.5 mg PO DAILY [facility] Last Admin: 09/17/18 11:20 Dose: 2.5 mg Dolutegravir Sodium (Tivicay) 50 mg PO DAILY [facility]; Protocol Last Admin: 09/17/18 11:20 Dose: 50 mg Ergocalciferol (Drisdol 50,000 Intl Units Cap) 1 cap PO Q7D [facility] Last Admin: 09/17/18 11:19 Dose: 1 cap Folic Acid (Folic Acid) 1 mg PO DAILY [facility] Last Admin: 09/17/18 11:19 Dose: 1 mg Home Med (Abacavir/Dolutegravir/Lamivudi [Triumeq 600-50-300 Mg Tablet]) 1 tab PO DAILY [facility] Cefepime HCl (Maxipime Iv 1 Gm Premix) 1 gm in 50 mls @ 100 mls/hr IVPB Q12H [facility]; Protocol Montelukast Sodium (Singulair) 10 mg PO HS [facility] Pneumococcal Polyvalent Vaccine (Pneumovax 23 Vaccine) 0.5 ml IM .ONCE ONE Stop: 09/19/18 10:01 Rosuvastatin Calcium (Crestor) 5 mg PO HS [facility] Physical Exam - Constitutional Appears: No Acute Distress, Chronically Ill - Head Exam Head Exam: ATRAUMATIC, NORMAL INSPECTION, NORMOCEPHALIC - Eye Exam Eye Exam: EOMI, Normal appearance, PERRL Pupil Exam: NORMAL ACCOMODATION, PERRL - ENT Exam ENT Exam: Mucous Membranes Moist, Normal Exam - Neck Exam Neck exam: Positive for: Normal Inspection - Respiratory Exam Respiratory Exam: Clear to Auscultation Bilateral, NORMAL BREATHING PATTERN - Cardiovascular Exam Cardiovascular Exam: REGULAR RHYTHM - GI/Abdominal Exam GI & Abdominal Exam: Normal Bowel Sounds, Soft. absent: Tenderness - Rectal Exam Rectal Exam: NORMAL INSPECTION - Exam External exam: NORMAL EXTERNAL EXAM - Extremities Exam Extremities exam: Positive for: normal inspection - Back Exam Back exam: NORMAL INSPECTION - Neurological Exam Neurological exam: Alert, CN II-XII Intact, Normal Gait, Oriented x3, Reflexes Normal - Psychiatric Exam Psychiatric exam: Normal Affect, Normal Mood - Skin Skin Exam: Dry, Intact, Normal Color, Warm Results - Vital Signs Recent Vital Signs: Last Vital Signs Temp 97.9 F 09/17/18 17:40 Pulse 71 09/17/18 17:40 Resp 20 09/17/18 17:40 BP 129/84 09/17/18 17:40 Pulse Ox 97 09/17/18 17:40 - Labs Result Diagrams: 09/17/18 03:44 09/17/18 03:44 Labs: Laboratory Results - last 24 hr 09/17/18 09/17/18 09/17/18 03:44 03:44 03:44 WBC 16.4 H D RBC 4.27 Hgb 14.4 Hct 42.4 MCV 99.4 H D MCH 33.7 H MCHC 33.9 RDW 12.9 Plt Count 455 H D MPV 7.3 Neut % (Auto) 91.3 H Lymph % (Auto) 4.8 L [place] % (Auto) 2.8 Eos % (Auto) 0.8 Baso % (Auto) 0.3 Neut # (Auto) 14.9 H Lymph # (Auto) 0.8 L [place] # (Auto) 0.5 Eos # (Auto) 0.1 Baso # (Auto) 0.1 Neutrophils % (Manual) 91 H Lymphocytes % (Manual) 4 L Monocytes % (Manual) 3 Eosinophils % (Manual) 2 Platelet Estimate Normal pO2 VBG pH VBG pCO2 VBG HCO3 VBG Total CO2 VBG O2 Sat (Calc) VBG Base Excess VBG Potassium Glucose Lactate Sodium 140 Potassium 3.0 L Chloride 107 Carbon Dioxide 23 Anion Gap 13 BUN 15 Creatinine 1.0 Est GFR ( Amer) > 60 Est GFR (Non-Af Amer) 55 Random Glucose 116 H D Calcium 8.9 Magnesium 2.0 Total Bilirubin 0.6 AST 30 ALT 9 D Alkaline Phosphatase 96 Total Protein 7.8 Albumin 4.0 Globulin 3.9 Albumin/Globulin Ratio 1.0 Venous Blood Potassium Urine Color Urine Clarity Urine pH Ur Specific [place] Urine Protein Urine Glucose (UA) Urine Ketones Urine Blood Urine Nitrate Urine Bilirubin Urine Urobilinogen Ur Leukocyte Esterase Urine WBC (Auto) Urine RBC (Auto) Urine Bacteria Influenza Typ A,B (EIA) Negative for flu a/b 09/17/18 09/17/18 03:45 04:30 WBC RBC Hgb Hct MCV MCH MCHC RDW Plt Count MPV Neut % (Auto) Lymph % (Auto) [place] % (Auto) Eos % (Auto) Baso % (Auto) Neut # (Auto) Lymph # (Auto) [place] # (Auto) Eos # (Auto) Baso # (Auto) Neutrophils % (Manual) Lymphocytes % (Manual) Monocytes % (Manual) Eosinophils % (Manual) Platelet Estimate pO2 56 H VBG pH 7.43 VBG pCO2 34 L VBG HCO3 23.9 VBG Total CO2 23.6 VBG O2 Sat (Calc) 93.2 H VBG Base Excess -1.1 L VBG Potassium 2.8 L Glucose 111 H Lactate 2.3 H Sodium 142.0 Potassium Chloride 110.0 H Carbon Dioxide Anion Gap BUN Creatinine Est GFR ( Amer) Est GFR (Non-Af Amer) Random Glucose Calcium Magnesium Total Bilirubin AST ALT Alkaline Phosphatase Total Protein Albumin Globulin Albumin/Globulin Ratio Venous Blood Potassium 2.8 L Urine Color Colorless Urine Clarity Clear Urine pH 7.0 Ur Specific [place] 1.003 Urine Protein Negative Urine Glucose (UA) Normal Urine Ketones Negative Urine Blood Negative Urine Nitrate Negative Urine Bilirubin Negative Urine Urobilinogen Normal Ur Leukocyte Esterase 2+ H Urine WBC (Auto) 22 H Urine RBC (Auto) 2 Urine Bacteria Many H Influenza Typ A,B (EIA) Assessment & Plan (1) Fever Status: Acute (2) Pyelonephritis Status: Acute - Assessment and Plan (Free Text) Assessment: renew HAART Rx check x ray shoulder IV antibiotics
[2018-09-17] MEDS: Cefepime IV 1 gm in Dextrose 1 GM/50 ML BAG IVPB SCH (22:35)
[2018-09-18] MEDS: Cefepime IV 1 gm in Dextrose 1 GM/50 ML BAG IVPB SCH ×2 (08:21→19:42)
[2018-09-18] MEDS: TRIUMEQ PO SCH (10:01)
--- NOTE | 2018-09-18 10:12 | US ---
Renal ultrasound HISTORY: Pyelonephritis. Comparison: None available. Technique: Real-time sonography was performed through the kidneys. Findings: Right kidney: 10.4 x 4.9 x 5.4 centimeters. Increased echogenicity of the renal parenchymal cortex suggestive for medical renal disease. No gross hydronephrosis. Somewhat irregular hypoechoic cyst in the upper to midpole of the right kidney measuring 3.9 x 2.0 x 3.4 centimeters. Lower pole nonobstructive echogenic calculus/calcification measuring 1.1 x 0.4 x 0.9 centimeters. Additional lower pole echogenic calcification/calculus measuring 6 x 5 x 6 millimeters. Visualized aorta is grossly preserved. Visualized urinary bladder is distended but otherwise grossly preserved. Left Kidney: 10.0 x 5.2 x 4.6 centimeters. Increased echogenicity of the renal parenchymal cortex suggestive for medical renal disease. Mild fullness and or mild hydronephrosis of the left renal collecting system. Lower pole echogenic shadowing focus suggestive for calcification/calculus measuring 1.0 x 0.4 x 1.5 centimeters. Additional midpole echogenic shadowing focus also suggestive for calculus/calcification measuring 9 x 6 x 8 millimeters. Upper pole heterogeneous complex cyst/cystic lesion containing internal septations and or peripheral nodular calcifications measuring 2.6 x 1.9 x 2.2 centimeters. Limited study secondary to gaseous distention of the bowel. Impression: 1. Increased echogenicity of the bilateral renal parenchymal cortices suggestive for medical renal disease. Clinical correlation. If there is concern for pyelonephritis, correlation with contrast-enhanced CT scan may be helpful. 2. Bilateral renal cysts as described above, one of the cysts in the left kidney appears complex. Clinical correlation. 3. Bilateral renal calculi. 4. Mild fullness/mild hydronephrosis of the left renal collecting system. 5. Distended urinary bladder.
--- NOTE | 2018-09-18 13:01 | RAD ---
Left shoulder three views HISTORY: Shoulder pain. Comparison: None available. Findings: Moderate narrowing of the glenohumeral joint space. Superior subluxation of the humeral head in relationship to the bony glenoid suggestive for possible rotator cuff pathology. Clinical correlation. Sclerosis with some subchondral cyst formation seen at the lateral aspect of the humeral head. Moderate acromioclavicular joint space degenerative changes. Impression: Moderate narrowing of the glenohumeral joint space. Superior subluxation of the humeral head in relationship to the bony glenoid suggestive for possible rotator cuff pathology. Clinical correlation. Sclerosis with some subchondral cyst formation seen at the lateral aspect of the humeral head. Moderate acromioclavicular joint space degenerative changes. If pain persists, consider correlation with MRI.
[2018-09-18] MEDS ORDERED: Triamcinolone Acetonide 40 mg/mL Inj IAA ONE (20:19)
[2018-09-18] MEDS ORDERED: Bupivacaine 0.25% Inj(30mL) IJ ONE (20:19)
--- NOTE | 2018-09-18 22:51 | PN ---
DATE: 09/18/2018 SUBJECTIVE: Today, the patient is seen and examined. The patient is complaining of pain to the left shoulder and also feeling weak. Denies any shortness of breath or chest pain. No dizziness. PHYSICAL EXAMINATION: VITAL SIGNS: The patient has blood pressure of 124/83, pulse 69, respirations 20, temperature 98 degrees Fahrenheit. NECK: Supple. LUNGS: Clear. HEART: Regular rate and rhythm. ABDOMEN: Soft. Positive bowel sound. EXTREMITIES: There is tenderness to the left shoulder that increased with abduction. Lower extremity, there is no edema. LABORATORY DATA: The patient has some tests done, and the patient had x-ray of the shoulder that showed moderate narrowing of the glenohumeral joint space, superior subluxation of the humeral head in addition to bony glenoid of possible rotator cuff pathology, and there is sclerosis with some subchondral cyst formation seen at the lateral aspect of the humeral head. We are going to order an orthopedic consult with Dr. Hever Ahuja and also Infectious Disease consult is appreciated. We will continue the antibiotic therapy. During tests, urine culture has gram-negative rods; and the patient is on antibiotic, that is Maxipime; so, we are going to continue the patient's antibiotics. Layton Pennington MD
--- NOTE | 2018-09-19 06:29 | HP ---
HISTORY OF PRESENT ILLNESS: This patient is a 68-year-old female with history of hypertension and HIV who came to the emergency room complaining about fever and chills, and also patient has shortness of breath. As a matter of fact, the patient, day before while in the office was complaining of some pain into the left shoulder, and the patient is also having some shortness of breath. ALLERGIES: NO KNOWN ALLERGIES. SOCIAL HISTORY: The patient has children, living with . FAMILY HISTORY: No inherited disease. REVIEW OF SYSTEMS: RESPIRATORY: She still has shortness of breath on exertion and cough. No fever. CARDIOVASCULAR: Denies any chest pain. GASTROINTESTINAL: No nausea or vomiting. GENITOURINARY: No abdominal discomfort. NEUROLOGIC: The patient is very weak. PHYSICAL EXAMINATION: GENERAL: The patient is alert, awake, and oriented x3. VITAL SIGNS: Blood pressure of 110/75, pulse 83, respirations 20, temperature 99.1. HEENT: Head is normocephalic. Mouth is moist. There is no thrush. LUNGS: Had some rhonchi noted. HEART: Regular rate and rhythm. ABDOMEN: Soft. It shows mild discomfort to the epigastric area. EXTREMITIES: There is no edema, no tenderness. LABORATORY DATA: The patient has some tests done. WBC is 16.4, hemoglobin 14.4, hematocrit 22.4, and platelets is 455. Chemistries: Sodium 140, potassium 3, chloride 107, bicarbonate is 23, BUN 16, creatinine 1, glucose is 116. AST is 30, ALT is 9, . Again, the patient has urine, it showed that the wbc is 22 and rbc is , and the bacteria in the urine is many. DIAGNOSES: The patient is admitted with diagnoses of urinary tract infection, human immunodeficiency virus, arthritis, and shoulder pain. The patient will have a consult tomorrow. In the meantime, the patient will be put on antibiotics and the blood culture is ordered. Layton Pennington MD
[2018-09-19] MEDS: Cefepime IV 1 gm in Dextrose 1 GM/50 ML BAG IVPB SCH ×2 (06:48→19:40)
[2018-09-19 08:13] LABS: BASO % 0.4 % (0.0-2.0); EOS # 0.2 K/uL (0.0-0.7); EOS % 3.4 % (0.0-4.0); HEMOGLOBIN 14.1 g/dL (11.0-16.0); LYMPH # 2.2 K/uL (1.0-4.3); LYMPH % 32.8 % (20.0-40.0); MEAN CORPUSCULAR HEMOGLOBIN 34.4 pg (27.0-31.0); MEAN CORPUSCULAR HGB CONC 33.9 g/dL (33.0-37.0); MEAN PLATELET VOLUME 8.3 fL (7.2-11.7); MONO # 0.5 K/uL (0.0-0.8); MONO % 7.8 % (0.0-10.0); NEUT # 3.7 K/uL (1.8-7.0); NEUT % 55.6 % (50.0-75.0); RBC 4.09 Mil/uL (3.80-5.20); RED CELL DISTRIBUTION WIDTH 13.3 % (11.5-14.5)
[2018-09-19 08:22] LABS: MEAN CELL VOLUME 101.5 fL (81.0-99.0); WHITE BLOOD COUNT 6.7 K/uL (4.8-10.8)
[2018-09-19 08:38] LABS: ALBUMIN 3.9 g/dL (3.5-5.0); CALCIUM 9.1 mg/dl (8.6-10.4)
[2018-09-19] MEDS ORDERED: Triamcinolone Acetonide 40 mg/mL Inj IAA ONE (08:51)
[2018-09-19] MEDS ORDERED: Bupivacaine 0.25% Inj(30mL) IJ ONE (08:51)
[2018-09-19] MEDS: TRIUMEQ PO SCH (09:41)
--- NOTE | 2018-09-19 12:05 | CP.PCM.CON ---
History of Present Illness - History of Present Illness History of Present Illness: ortho consult for Dr. Ahuja 68 F complaining of left shoulder pain for the last several months. Patient denies any history of injury or trauma. Patient states the pain is progressively getting worse over the last few months. She has difficulty sleeping on her left side due to the pain. She states about 3 years ago, she had pain in her right shoulder which she did therapy and had one cortisone injection which relieved her pain. She also admits to neck pain that radiates down the left upper extremity. She denies any numbness,tingling or weakness. She has taken over the counter anti-inflammatories without much relief. Past Patient History - Past Medical History & Family History Past Medical History?: Yes - Past Social History Smoking Status: Never Smoked - CARDIAC Hx Hypercholesterolemia: Yes Hx Hypertension: Yes - PULMONARY Hx Asthma: Yes - NEUROLOGICAL Hx Neurological Disorder: No - HEENT Hx HEENT Problems: No - RENAL Hx Chronic Kidney Disease: No - ENDOCRINE/METABOLIC Hx Endocrine Disorders: No - HEMATOLOGICAL/ONCOLOGICAL Hx Human Immunodeficiency Virus (HIV): Yes - INTEGUMENTARY Hx Dermatological Problems: No - MUSCULOSKELETAL/RHEUMATOLOGICAL Hx Musculoskeletal Disorders: No Hx Falls: Yes - GASTROINTESTINAL Hx Gastrointestinal Disorders: No - GENITOURINARY/GYNECOLOGICAL Hx Genitourinary Disorders: No - PSYCHIATRIC Hx Substance Use: No - SURGICAL HISTORY Hx Cholecystectomy: Yes - ANESTHESIA Hx Anesthesia: Yes Hx Anesthesia Reactions: No Hx Malignant Hyperthermia: No Meds Allergies/Adverse Reactions: Allergies Allergy/AdvReac Type Severity Reaction Status Date / Time No Known Allergies Allergy Verified 09/17/18 03:15 - Medications Medications: Current Medications Albuterol (Ventolin Hfa 90 Mcg/Actuation (8 G)) 1 puff IH RQ6 PRN PRN Reason: Shortness of Breath Amlodipine Besylate (Norvasc) 2.5 mg PO DAILY [facility] Last Admin: 09/19/18 09:40 Dose: 2.5 mg Ergocalciferol (Drisdol 50,000 Intl Units Cap) 1 cap PO Q7D [facility] Last Admin: 09/17/18 11:19 Dose: 1 cap Folic Acid (Folic Acid) 1 mg PO DAILY [facility] Last Admin: 09/19/18 09:41 Dose: 1 mg Heparin Sodium (Porcine) (Heparin) 5,000 units SC Q12 [facility] Last Admin: 09/19/18 09:41 Dose: 5,000 units Home Med (Abacavir/Dolutegravir/Lamivudi [Triumeq 600-50-300 Mg Tablet]) 1 tab PO DAILY [facility] Last Admin: 09/19/18 09:41 Dose: 1 tab Cefepime HCl (Maxipime Iv 1 Gm Premix) 1 gm in 50 mls @ 100 mls/hr IVPB Q12H [facility]; Protocol Last Admin: 09/19/18 06:48 Dose: 100 mls/hr Influenza Virus Vaccine (Flucelvax Quad 3888-1652 Syr) 60 mcg IM .ONCE ONE Stop: 09/21/18 10:01 Montelukast Sodium (Singulair) 10 mg PO HS [facility] Last Admin: 09/18/18 21:20 Dose: 10 mg Pneumococcal Polyvalent Vaccine (Pneumovax 23 Vaccine) 0.5 ml IM .ONCE ONE Stop: 09/21/18 10:01 Rosuvastatin Calcium (Crestor) 5 mg PO [facility] Last Admin: 09/18/18 21:20 Dose: 5 mg Physical Exam - Constitutional Appears: Well, No Acute Distress - Head Exam Head Exam: ATRAUMATIC, NORMAL INSPECTION, NORMOCEPHALIC - Respiratory Exam Respiratory Exam: NORMAL BREATHING PATTERN - Cardiovascular Exam Cardiovascular Exam: RRR - Extremities Exam Additional comments: On examination, patient is AAOx3. No acute distress. On examination of the cervical spine, there is no obvious deformity or swelling. The skin is intact. S he has mild loss of extension without significant pain. She has 5/5 strength in all muscle groups of the upper extremities. Sensation is intact to light touch. Negative Hoffmans bilaterally. Neurologically she is intact distally. On examination of the left shoulder, the skin is intact. There is no swelling or deformity. No areas of tenderness to palpation. She has full range of forward flexion and abduction. Internal rotation with thumb to left gluteal region with pain. She has 5/5 strength with reisted abduction with discomfort. She has breakaway weakness secondary to pain with resisted forward flexion. Negative Chin. Positive cross shoulder adduction. Neurovascularly she is intact dista lly Results - Vital Signs Recent Vital Signs: Last Vital Signs Temp 98.6 F 09/19/18 08:00 Pulse 70 09/19/18 11:24 Resp 20 09/19/18 08:00 BP 109/68 09/19/18 08:00 Pulse Ox 98 09/19/18 11:24 - Labs Result Diagrams: 09/19/18 07:46 09/19/18 07:44 Labs: Laboratory Results - last 24 hr 09/19/18 09/19/18 07:44 07:46 WBC 6.7 D RBC 4.09 Hgb 14.1 Hct 41.5 MCV 101.5 H D MCH 34.4 H MCHC 33.9 RDW 13.3 Plt Count 447 H MPV 8.3 Neut % (Auto) 55.6 Lymph % (Auto) 32.8 [place] % (Auto) 7.8 Eos % (Auto) 3.4 Baso % (Auto) 0.4 Neut # (Auto) 3.7 Lymph # (Auto) 2.2 [place] # (Auto) 0.5 Eos # (Auto) 0.2 Baso # (Auto) 0.0 Sodium 141 Potassium 3.9 Chloride 107 Carbon Dioxide 24 Anion Gap 14 BUN 20 H Creatinine 1.2 Est GFR ( Amer) 54 Est GFR (Non-Af Amer) 45 Random Glucose 87 D Calcium 9.1 Phosphorus 3.8 Magnesium 2.2 Total Bilirubin 0.9 AST 23 ALT 17 Alkaline Phosphatase 93 Total Protein 7.7 Albumin 3.9 Globulin 3.8 Albumin/Globulin Ratio 1.0 TSH 3rd Generation 1.04 Assessment & Plan (1) Rotator cuff syndrome of left shoulder Assessment and Plan: X-rays reviewed with Dr. Ahuja, showing moderate AC joint arthrosis. Sclerotic changes noted over the greater tuberosity The treatment options were discussed with the patient. At this time I recommend a cortisone injection for relief. The risks,benefits and alternatives were discussed. Patient states her understanding and would like to proceed. The left shoulder was prepped sterilely and 1.5c Marcaine and 1cc Kenalog 40 was injected into the left shoulder. Patient tolerated the procedure well. At this time we will order x-rays of the cervical spine. Will follow up with results Discussed above with Dr. Ahuja, agrees with above. Status: Acute
--- NOTE | 2018-09-19 17:34 | CP.PCM.PN ---
Subjective - Date & Time of Evaluation Date of Evaluation: 09/19/18 Time of Evaluation: 08:00 - Subjective Subjective: afebrile less shoulder pain awake alert Objective - Vital Signs/Intake and Output Vital Signs (last 24 hours): Temp Pulse Resp BP Pulse Ox 98.4 F 57 L 20 122/66 94 L 09/19/18 16:00 09/19/18 16:00 09/19/18 16:00 09/19/18 16:00 09/19/18 16:00 Intake and Output: 09/19/18 09/19/18 06:59 18:59 Intake Total 500 600 Balance 500 600 - Medications Medications: Current Medications Albuterol (Ventolin Hfa 90 Mcg/Actuation (8 G)) 1 puff IH RQ6 PRN PRN Reason: Shortness of Breath Amlodipine Besylate (Norvasc) 2.5 mg PO DAILY [facility] Last Admin: 09/19/18 09:40 Dose: 2.5 mg Ergocalciferol (Drisdol 50,000 Intl Units Cap) 1 cap PO Q7D [facility] Last Admin: 09/17/18 11:19 Dose: 1 cap Folic Acid (Folic Acid) 1 mg PO DAILY [facility] Last Admin: 09/19/18 09:41 Dose: 1 mg Heparin Sodium (Porcine) (Heparin) 5,000 units SC Q12 [facility] Last Admin: 09/19/18 09:41 Dose: 5,000 units Home Med (Abacavir/Dolutegravir/Lamivudi [Triumeq 600-50-300 Mg Tablet]) 1 tab PO HS [facility] Cefepime HCl (Maxipime Iv 1 Gm Premix) 1 gm in 50 mls @ 100 mls/hr IVPB Q12H [facility]; Protocol Last Admin: 09/19/18 06:48 Dose: 100 mls/hr Influenza Virus Vaccine (Flucelvax Quad 1701-5938 Syr) 60 mcg IM .ONCE ONE Stop: 09/21/18 10:01 Montelukast Sodium (Singulair) 10 mg PO [facility] Last Admin: 09/18/18 21:20 Dose: 10 mg Pneumococcal Polyvalent Vaccine (Pneumovax 23 Vaccine) 0.5 ml IM .ONCE ONE Stop: 09/21/18 10:01 Rosuvastatin Calcium (Crestor) 5 mg PO [facility] Last Admin: 09/18/18 21:20 Dose: 5 mg - Labs Labs: 09/19/18 07:46 09/19/18 07:44 - Constitutional Appears: Well - Head Exam Head Exam: ATRAUMATIC, NORMAL INSPECTION, NORMOCEPHALIC - Eye Exam Eye Exam: EOMI, Normal appearance, PERRL Pupil Exam: NORMAL ACCOMODATION, PERRL - ENT Exam ENT Exam: Mucous Membranes Moist, Normal Exam - Neck Exam Neck Exam: Full ROM, Normal Inspection. absent: Lymphadenopathy - Respiratory Exam Respiratory Exam: Clear to Ausculation Bilateral, NORMAL BREATHING PATTERN - Cardiovascular Exam Cardiovascular Exam: REGULAR RHYTHM, +S1, +S2. absent: Murmur - GI/Abdominal Exam GI & Abdominal Exam: Soft, Normal Bowel Sounds. absent: Tenderness - Rectal Exam Rectal Exam: NORMAL INSPECTION - Extremities Exam Extremities Exam: Full ROM, Normal Capillary Refill, Normal Inspection. absent: Joint Swelling, Pedal Edema - Back Exam Back Exam: NORMAL INSPECTION - Neurological Exam Neurological Exam: Alert, Awake, CN II-XII Intact, Normal Gait, Oriented x3 - Psychiatric Exam Psychiatric exam: Normal Affect, Normal Mood - Skin Skin Exam: Dry, Intact, Normal Color, Warm Assessment and Plan (1) Fever Status: Acute (2) Pyelonephritis Status: Acute - Assessment and Plan (Free Text) Assessment: cont iv rx
--- NOTE | 2018-09-19 18:58 | RAD ---
Cervical spine three views HISTORY: Neck pain. Comparison: None available. Findings: Cervical spine visualized from the C1 through C7 levels. Loss of height of the C5 and C6 vertebral bodies. Prominent disc space narrowing with endplate sclerosis seen at the C5-6 and C6-7 levels with anterior and posterior osteophyte formation. No gross prevertebral soft tissue swelling. Multilevel uncovertebral joint and facet hypertrophy. No evidence of acute displaced fracture. Additional prominent posterior disc osteophyte complex at the C7-T1 level. Question cortical irregularity of the posterior superior endplate of the T1 vertebral body. Correlation with thoracic spine x-rays may be helpful if clinically indicated. Alternatively, correlation with CT of the thoracic spine may be helpful if indicated. Dens is intact. Impression: Prominent degenerative changes. If pain persists, consider correlation with MRI. Question cortical irregularity of the posterior superior endplate of the T1 vertebral body. Correlation with thoracic spine x-rays may be helpful if clinically indicated. Alternatively, correlation with CT of the thoracic spine may be helpful if indicated.
[2018-09-20 00:25] VITALS: TEMP 97.9
[2018-09-20] MEDS: Cefepime IV 1 gm in Dextrose 1 GM/50 ML BAG IVPB SCH (06:56)
[2018-09-20 08:15] VITALS: BP 121/72; PULSE 61; RESP 18; O2SAT 98
--- NOTE | 2018-09-20 09:31 | PN ---
DATE: 09/19/2018 SUBJECTIVE: Today, the patient was seen early this morning and was still complaining of some pain to the left shoulder, and the patient denied any shortness of breath, any chest pain, or palpitation. PHYSICAL EXAMINATION: VITAL SIGNS: The patient had a blood pressure of 122/66, pulse is 67, temperature 98.4, and respirations 20. NECK: Supple. LUNGS: Clear. HEART: Regular rate and rhythm. ABDOMEN: Soft. Mild epigastric tenderness. EXTREMITIES: There is some tenderness in the left shoulder, increasing with abduction. LABORATORY DATA: WBC is 6.7 now from 16.4, hemoglobin 14.1, hematocrit 41.5, and platelets 447. Chemistry showed sodium 141, potassium 3.9, chloride 107, bicarb 24, BUN 20, creatinine 1.2, glucose 87, calcium 9.1. Total protein 7.7, albumin 3.9, globulin 3.8, TSH is 1.04. ASSESSMENT AND PLAN: consult with Ortho, injection of the shoulder was given, and recommendation was physical therapy, and C-spine was ordered. So, we will continue the current medications and also the ID progress note with Dr. Brunner is appreciated. Layton Pennington MD
--- NOTE | 2018-09-20 12:25 | CP.PCM.PN ---
Subjective - Date & Time of Evaluation Date of Evaluation: 09/20/18 Time of Evaluation: 10:00 - Subjective Subjective: no fever on cefepime day 3 cont rx recommended Objective - Vital Signs/Intake and Output Vital Signs (last 24 hours): Temp Pulse Resp BP Pulse Ox 97.9 F 61 18 121/72 98 09/20/18 08:13 09/20/18 08:13 09/20/18 08:13 09/20/18 08:13 09/20/18 08:13 Intake and Output: 09/20/18 09/20/18 06:59 18:59 Intake Total 400 Balance 400 - Medications Medications: Current Medications Albuterol (Ventolin Hfa 90 Mcg/Actuation (8 G)) 1 puff IH RQ6 PRN PRN Reason: Shortness of Breath Amlodipine Besylate (Norvasc) 2.5 mg PO DAILY [facility] Last Admin: 09/20/18 09:15 Dose: 2.5 mg Ergocalciferol (Drisdol 50,000 Intl Units Cap) 1 cap PO Q7D [facility] Last Admin: 09/17/18 11:19 Dose: 1 cap Folic Acid (Folic Acid) 1 mg PO DAILY [facility] Last Admin: 09/20/18 09:15 Dose: 1 mg Heparin Sodium (Porcine) (Heparin) 5,000 units SC Q12 [facility] Last Admin: 09/20/18 09:15 Dose: 5,000 units Home Med (Abacavir/Dolutegravir/Lamivudi [Triumeq 600-50-300 Mg Tablet]) 1 tab PO HS [facility] Cefepime HCl (Maxipime Iv 1 Gm Premix) 1 gm in 50 mls @ 100 mls/hr IVPB Q12H [facility]; Protocol Last Admin: 09/20/18 06:56 Dose: 100 mls/hr Influenza Virus Vaccine (Flucelvax Quad 4042-9809 Syr) 60 mcg IM .ONCE ONE Stop: 09/21/18 10:01 Montelukast Sodium (Singulair) 10 mg PO [facility] Last Admin: 09/19/18 22:07 Dose: 10 mg Pneumococcal Polyvalent Vaccine (Pneumovax 23 Vaccine) 0.5 ml IM .ONCE ONE Stop: 09/21/18 10:01 Rosuvastatin Calcium (Crestor) 5 mg PO [facility] Last Admin: 09/19/18 22:07 Dose: 5 mg - Labs Labs: 09/19/18 07:46 09/19/18 07:44 - Constitutional Appears: Chronically Ill - Head Exam Head Exam: ATRAUMATIC - Eye Exam Eye Exam: PERRL - ENT Exam ENT Exam: Mucous Membranes Dry - Neck Exam Neck Exam: absent: Lymphadenopathy - Respiratory Exam Respiratory Exam: Decreased Breath Sounds - Cardiovascular Exam Cardiovascular Exam: REGULAR RHYTHM - GI/Abdominal Exam GI & Abdominal Exam: Distended. absent: Tenderness - Rectal Exam Rectal Exam: Deferred - Exam Exam: NORMAL INSPECTION Assessment and Plan (1) Fever Status: Acute (2) Pyelonephritis Status: Acute - Assessment and Plan (Free Text) Assessment: cont rx as ordered
[2018-09-20] MEDS ORDERED: Pneumococcal 23-Valent Vaccine IM ONE (15:00)
[2018-09-20] MEDS ORDERED: Influenza Vaccine 60 mcg/0.5 mL SYR (4YR UP) IM ONE (15:00)
--- NOTE | 2018-09-20 17:20 | CP.PCM.PN ---
Subjective - Date & Time of Evaluation Date of Evaluation: 09/20/18 Time of Evaluation: 11:00 - Subjective Subjective: alert, oriented, no sob or acute pain. Objective - Vital Signs/Intake and Output Vital Signs (last 24 hours): Temp Pulse Resp BP Pulse Ox 97.9 F 61 18 121/72 98 09/20/18 08:13 09/20/18 08:13 09/20/18 08:13 09/20/18 08:13 09/20/18 08:13 Intake and Output: 09/20/18 09/20/18 06:59 18:59 Intake Total 400 600 Balance 400 600 - Labs Labs: 09/19/18 07:46 09/19/18 07:44 Assessment and Plan - Assessment and Plan (Free Text) Assessment: 68 year old female admitted with UTI, left shoulder pain, seen and examined. Alert and orientedx3, no sob or chest pains, left shoulder pain improving after steroid injection by ortho. Discussed with DR Pennington and DR Brunner, plan to discharge home today on keflex for 7 days for UTI. advised to follow up with ortho in 1 week and also with PMD in 1 week.
[2018-09-20] MEDS ORDERED: TRIUMEQ PO SCH (22:00)
--- NOTE | 2018-09-21 02:09 | PN ---
DATE: 09/20/2018 SUBJECTIVE: The patient is seen early this morning and complaining of less pain to the left shoulder. Denies any shortness of breath or chest pain. No dysuria. PHYSICAL EXAMINATION: VITAL SIGNS: The patient has a blood pressure of 121/72, pulse 61, respirations 18, and temperature is 97.9. The patient is afebrile for the past 48 hours. NECK: Supple. LUNGS: Clear. HEART: Regular rate and rhythm. ABDOMEN: Soft, nontender. No palpable mass. EXTREMITIES: There is some tenderness to left shoulder. The patient regains full range of motion. There is no swelling of the shoulder. LABORATORY DATA: The patient's lab showed that the WBC is 6.7, hemoglobin 14.1, hematocrit 41.5 and platelets 447. Chemistry showed the sodium is 141, potassium 2.9, chloride 107, bicarb is 24, BUN 20, creatinine 1.2. AST is 23, ALT is 17, alkaline phosphatase is 93. ASSESSMENT AND PLAN: Plan is that we are going to consider discharging the patient and contact Dr. Brunner. The patient will follow up as outpatient. The case was discussed with Celi Marie, the nurse practitioner. Layton Pennington MD
--- NOTE | 2018-09-21 12:03 | DS ---
HISTORY OF PRESENT ILLNESS: This patient is a 68 years old female with history of HIV, who came to the emergency room because the patient was complaining of fever and chills and shortness of breath and the patient was evaluated in the emergency room and was found to have elevated white blood cell of 16.4, hemoglobin was 14.4, hematocrit 22.4. Urine was found to be positive for WBC and bacteria. The patient was admitted for urosepsis and also, the patient was complaining of some pain to the left shoulder, which the patient was complaining before, and the patient had an x-ray of the shoulder that revealed some narrowing of the glenohumeral joint space and subluxation of the humeral head in addition to the bony glenoid suggestive of possible rotator cuff pathology and also, the urine was drawn for culture. The urine culture done had revealed E. coli and resistance to Maxipime and cefepime. The patient received the medication and the patient is much better and the patient had an injection to the left shoulder by orthopedist, which has decreased the pain, and the patient will be discharged on medication including Keflex and also will have an appointment to see the orthopedist within a week. Layton Pennington MD
== END 2018-09-20 15:55 | disposition home or self-care (01) | DRG 690 ==
LOC: C.ER 03:05 → C.9E 06:17 → C.3T 16:54
PROVIDERS: ADMIT Specialist; ATTEND Specialist
PROC: 3E0U33Z Introduction of Anti-inflammatory into Joints, Percutaneous Approach (ICD-10-PCS; principal; 2018-09-19)
DX: N12 Tubulo-interstitial nephritis, not specified as acute or chronic (principal); B20 Human immunodeficiency virus [HIV] disease; B96.20 Unspecified Escherichia coli [E. coli] as the cause of diseases classified elsewhere; I10 Essential (primary) hypertension; M19.012 Primary osteoarthritis, left shoulder; M75.102 Unspecified rotator cuff tear or rupture of left shoulder, not specified as traumatic; J45.909 Unspecified asthma, uncomplicated; Z16.39 Resistance to other specified antimicrobial drug; E78.00 Pure hypercholesterolemia, unspecified; Z85.3 Personal history of malignant neoplasm of breast; Z90.49 Acquired absence of other specified parts of digestive tract